=== PATIENT | female | born 1985 | race Caucasian/White ===

== ENCOUNTER 2018-04-03 22:43 | Emergency (ER) | payer MEDICAID ==
[~2018-04-03] VITALS: Ht 177.8 cm; Wt 71.7 kg
[2018-04-03] MEDS ORDERED: NKM (22:56)
[2018-04-03] MEDS ORDERED: Aspirin Baby 81mg ORAL ONE (23:30)
[2018-04-03] MEDS ORDERED: Ketorolac 30mg Inj IV ONE (23:30)
--- NOTE | 2018-04-04 00:03 | Emergency Room Report ---
History of Present Illness General Chief Complaint: Chest Pain Source: Patient Present Illness HPI This is a 32-year-old female who said that she had a history of heart attack in the past. She has been having chest pain and syncope with headache for the last several months. She said she was at [place] admitted for week a couple weeks ago. She had a stress test and echocardiogram was normal. They did an angiogram and said that she had normal arteries. She said that someone told her that she had a heart attack. She said of last March she was in was sealed also had an angiogram that was negative. Patient presents with chief complaint of chest pain at was onset about 2 hours ago. She said that she felt lightheaded and passed out. No trauma. Pain is diffuse in nature. Sharp. No nausea no vomiting. No fever chills. Denies anxiety. Allergies: Coded Allergies: No Known Allergies (Unverified , 04/03/18) Patient History Past Medical History: see triage record, old chart reviewed Past Surgical History: other Pertinent Family History: none Social History: Denies: smoking Last Menstrual Period: unk Now: No Immunizations: other Reviewed Nursing Documentation: PMH: Agreed; PSxH: Agreed Nursing Documentation-PMH Past Medical History: No Stated History Review of Systems Eye: Denies: eye pain, blurred vision ENT: Denies: ear pain, nose congestion, throat swelling Respiratory: Denies: cough, shortness of breath Cardiovascular: Reports: chest pain; Denies: palpitations Gastrointestinal: Denies: abdominal pain, diarrhea, nausea, vomiting Musculoskeletal: Denies: back pain, joint pain Skin: Denies: rash Neurological: Denies: headache, numbness Endocrine: Denies: increased thirst, increased urine Hematologic/Lymphatic: Denies: easy bruising All Other Systems: negative except mentioned in HPI Physical Exam Vital Signs Date Time Temp Pulse Resp B/P (MAP) Pulse Ox O2 Delivery O2 Flow Rate FiO2 04/03/18 22:51 98.2 78 16 112/77 99 Room Air 98.2 vitals normal Sp02 EP Interpretation: reviewed, normal General Appearance: well appearing, no apparent distress, alert Head: normocephalic, atraumatic Eyes: bilateral eye PERRL, bilateral eye EOMI ENT: hearing grossly normal, normal pharynx Neck: full range of motion, supple, no meningismus Respiratory: chest non-tender, lungs clear, normal breath sounds Cardiovascular #1: regular rate, rhythm, no murmur Gastrointestinal: normal bowel sounds, non tender, no mass, no organomegaly, no bruit, non-distended Musculoskeletal: back normal, gait/station normal, normal range of motion Neurologic: alert, oriented x3 Psychiatric: anxious Skin: warm/dry Medical Decision Making Diagnostic Impression: Primary Impression: Chest pain Qualified Codes: R07.9 - Chest pain, unspecified ER Course Patient presents with atypical chest pain and syncope and lightheadedness. Most likely anxiety hyperventilation. I see no evidence of ACS, PE, dissection to name a few. Negative angiogram within the last year. We'll discharge home with reassurance and follow-up with cardiology for Holter monitor. Lab Results Impression labs normal EKG Diagnostic Results EKG Time: 00:02 Rate: normal Rhythm: NSR ST Segments: no acute changes ASA given to the pt in ED: Yes Rhythm Strip Diag. Results Rhythm Strip Time: 00:03 EP Interpretation: yes Rate: 65 Rhythm: NSR, no PVC's, no ectopy Chest X-Ray Diagnostic Results Chest X-Ray Diagnostic Results : Chest X-Ray Ordered: Yes # of Views/Limited/Complete: 1 View Indication: Chest Pain EP Interpretation: Yes Interpretation: no consolidation, no effusion, no pneumothorax, no acute cardiopulmonary disease Impression: No acute disease Electronically Signed by: Lamont Sosa MD Last Vital Signs Date Time Temp Pulse Resp B/P (MAP) Pulse Ox O2 Delivery O2 Flow Rate FiO2 04/03/18 23:12 78 16 Room Air 04/03/18 22:51 98.2 112/77 99 98.2 Status: improved Disposition: HOME, SELF-CARE Condition: Stable Scripts Lorazepam* (ATIVAN*) 0.5 Mg Tablet 0.5 MG ORAL THREE TIMES A DAY, #21 TAB Prov: LAMONT SOSA M.D. 04/04/18 Referrals: [facility],REFERRING (PCP) Patient Instructions: Nonspecific Chest Pain Additional Instructions: Follow-up with your doctor within 7 days. You may benefit from referral to see a sealer operator for Holter monitor. Return of worse. LAMONT SOSA M.D. April 04, 2018 00:03
[2018-04-04 00:28] LABS: ANION GAP 7 mmol/L (5-15); BLOOD UREA NITROGEN 7 mg/dL (7-18); CALCIUM 8.7 MG/DL (8.5-10.1); CARBON DIOXIDE 28 MMOL/L (21-32); CHLORIDE 105 MMOL/L (98-107); CREATININE 0.7 MG/DL (0.55-1.30); POTASSIUM 3.2 MMOL/L (3.5-5.1); SODIUM 140 MMOL/L (136-145)
[2018-04-04 00:39] LABS: HEMATOCRIT 41.3 % (37.0-47.0); HEMOGLOBIN 14.6 G/DL (12.0-16.0); MEAN CORPUSCULAR VOLUME 94 FL (80-99); WHITE BLOOD COUNT 7.5 K/UL (4.8-10.8)
[2018-04-04 00:40] LABS: BASOPHILS % (AUTO) 0.6 % (0.0-2.0); LYMPHOCYTES % (AUTO) 30.6 % (20.0-45.0); MONOCYTES % (AUTO) 5.9 % (1.0-10.0); NEUTROPHILS % (AUTO) 60.9 % (45.0-75.0); PLATELET COUNT 239 K/UL (150-450); RED CELL DISTRIBUTION WIDTH 11.1 % (11.6-14.8)
[2018-04-04 00:43] LABS: ALANINE AMINOTRANSFERASE 20 U/L (12-78); ALBUMIN 3.9 G/DL (3.4-5.0); ALBUMIN/GLOBULIN RATIO 1.1 (1.0-2.7); ALKALINE PHOSPHATASE 47 U/L (46-116); ASPARTATE AMINO TRANSFERASE 12 U/L (15-37); BILIRUBIN,TOTAL 0.7 MG/DL (0.2-1.0); CKMB 0.6 NG/ML (0.0-3.6); CREATINE KINASE 175 U/L (26-308)
[2018-04-04 00:44] LABS: APPEARANCE,URINE CLEAR; COLOR,URINE PALE YELLOW
[2018-04-04 00:45] LABS: BILIRUBIN, URINE NEGATIVE (NEGATIVE); GLUCOSE, URINE (UA) NEGATIVE (NEGATIVE); KETONES,URINE NEGATIVE (NEGATIVE); LEUKOCYTE ESTERASE ,URINE NEGATIVE (NEGATIVE); NITRITE,URINE NEGATIVE (NEGATIVE); PH,URINE 5 (4.5-8.0); PROTEIN,URINE 1+ (NEGATIVE); UROBILINOGEN,URINE NORMAL MG/DL (0.0-1.0)
[2018-04-04 00:54] VITALS: BP 112/77
[2018-04-04] MEDS ORDERED: ATIVAN0.5 MG ORAL (00:58)
--- NOTE | 2018-04-04 17:05 | Diagnostic Imaging Report ---
Indication: Chest pain Technique: XRAY Chest 1v Comparison: None Findings: Heart size within the upper limits for normal. Mediastinal contours are sharp.. There is no focal consolidation, pneumothorax or pleural effusion. Osseous structures demonstrate no acute abnormality. Impression: No radiographic evidence of acute cardiopulmonary disease.
--- NOTE | 2018-04-06 12:01 | Cardiology Report ---
APPROVED REPORT EKG Measurement Heart [id number] Sinus rhythm with sinus arrhythmia with 1st degree AV block Incomplete right bundle branch block Borderline ECG
== END 2018-04-04 00:54 | disposition home or self-care (01) ==
LOC: EMR 23:08
DX: R07.89 Other chest pain (principal)
CPT/HCPCS: 36415; 71045; 80053; 80307; 81003; 82550; 82553; 84484; 85025; 85379; 93005; 96374; 96375; 99283; J1885

== ENCOUNTER 2019-03-22 21:00 | Emergency (ER) | payer MEDICAID ==
[~2019-03-22] VITALS: Ht 177.8 cm; Wt 74.8 kg
[~2019-03-22 21:00] MED LIST: ATIVAN0.5 MG ORAL; NKM
--- NOTE | 2019-03-22 21:32 | NUR ---
ER Nurse Note: Pt came from home c/o right knee pain post fall. Pt stated her knee locked up and fell in the kitchen. Right knee swollen, no skin breakdown, cap refill less than 3 secs and pedial pulses 2+. Pt unable to ambulate. Pt a&ox4, VSS. Pt states 8/10 pain; elevated and ice pack applied. x-ray taken, will continue to montior.
[2019-03-22] MEDS ORDERED: HYDROmorphone 1mg/ml Carpuject IM ONE (21:45)
[2019-03-22] MEDS ORDERED: HYDROCODON-ACE1 EA15 ORAL (22:28)
[2019-03-22] MEDS ORDERED: IBUPROFEN600 MG ORAL (22:28)
--- NOTE | 2019-03-22 22:29 | Emergency Room Report ---
History of Present Illness General Chief Complaint: Lower Extremity Injury Source: Patient Present Illness HPI Is a 33-year-old female with a history of right knee arthritis secondary to degenerative problem. She has previous surgery. She presents with right knee pain. She has chronic pain in that knee. She said it locks up frequently. 2 days ago and locked up and she fell directly into the knee. Since then is swollen. Pain is 9 out of 10. Worse with walking. Worse with weightbearing. No fever chills but no other trauma. No redness. No relief with over-the- counter medication. Allergies: Coded Allergies: No Known Allergies (Unverified , 04/03/18) Patient History Past Medical History: see triage record, old chart reviewed Past Surgical History: other Pertinent Family History: none Social History: Denies: smoking Last Menstrual Period: 03/08/2019 Now: No Immunizations: other Reviewed Nursing Documentation: PMH: Agreed; PSxH: Agreed Nursing Documentation-PMH Past Medical History: No Stated History Review of Systems Eye: Denies: eye pain, blurred vision ENT: Denies: ear pain, nose congestion, throat swelling Respiratory: Denies: cough, shortness of breath Cardiovascular: Denies: chest pain, palpitations Gastrointestinal: Denies: abdominal pain, diarrhea, nausea, vomiting Musculoskeletal: Reports: joint pain; Denies: back pain Skin: Denies: rash Neurological: Denies: headache, numbness Endocrine: Denies: increased thirst, increased urine Hematologic/Lymphatic: Denies: easy bruising All Other Systems: negative except mentioned in HPI Physical Exam Vital Signs Date Time Temp Pulse Resp B/P (MAP) Pulse Ox O2 Delivery O2 Flow Rate FiO2 03/22/19 21:18 98.1 86 16 107/67 96 Room Air vitals normal Sp02 EP Interpretation: reviewed, normal General Appearance: well appearing, no apparent distress, alert Head: normocephalic, atraumatic Eyes: bilateral eye PERRL, bilateral eye EOMI ENT: hearing grossly normal, normal pharynx Neck: full range of motion, supple, no meningismus Respiratory: chest non-tender, lungs clear, normal breath sounds Cardiovascular #1: regular rate, rhythm, no murmur Gastrointestinal: normal bowel sounds, non tender, no mass, no organomegaly, no bruit, non-distended Musculoskeletal: back normal, other - Right knee: There is moderate amount of effusion. Knee is stable. Full range of motion. Most of tenderness is to the lateral collateral ligament. No redness. No warmth. Psychiatric: mood/affect normal Skin: warm/dry Procedures Additional Procedure Procedure Narrative Procedure: Right knee arthrocentesis Indication: Right knee effusion Description: Under sterile condition, I attempted arthrocentesis using lateral approach. It was unsuccessful. I keep hitting a lot of scar tissue. Patient said this happened to her several times already. She tolerated procedure without a problem. no complications. Medical Decision Making Diagnostic Impression: Primary Impression: Effusion of right knee joint Additional Impression: Arthritis of right knee ER Course Patient presents with right knee effusion and pain. This probably secondary to her degenerative and arthritic changes. No evidence of septic joint based on physical exam. She has no fever, redness, and has full range of motion even though painful. We'll discharge home. Other X-Ray Diagnostic Results Other X-Ray Diagnostic Results : X-Ray ordered: Right knee x-rays # of Views/Limited Vs Complete: 4 View Indication: Pain EP Interpretation: Yes Interpretation: no dislocation, no soft tissue swelling, other - effusion, degenerative changes Impression: Other - Degenerative changes. effusion Electronically Signed by: Lamont Sosa MD Last Vital Signs Date Time Temp Pulse Resp B/P (MAP) Pulse Ox O2 Delivery O2 Flow Rate FiO2 03/22/19 21:18 98.1 86 16 107/67 96 Room Air Status: improved Disposition: HOME, SELF-CARE Condition: Stable Scripts Ibuprofen* (MOTRIN*) 600 Mg Tablet 600 MG ORAL THREE TIMES A DAY, #30 TAB 0 Refills Prov: Lamont Sosa MD 03/22/19 Hydrocodone/Acetaminophen 5-325* (HYDROCODONE/ACETAMINOPHEN 5-325*) 1 Each Tablet 1 TAB ORAL Q6H PRN for For Pain, #20 TAB 0 Refills Prov: Lamont Sosa MD 03/22/19 Additional Instructions: Follow-up with your doctor in 7 days. Elevate leg. Return if symptom worsen. Lamont Sosa MD Mar 22, 2019 22:29
[2019-03-22 22:50] VITALS: BP 100/64
--- NOTE | 2019-03-22 22:50 | NUR ---
ER Nurse Note: Pt seen, treated, medically cleared for discharge by ERMD. Discharge instructions and prescriptions given with repeat verbalizaion by pt. Instructed pt to follow up with primary care physcian within one week. Pt a&ox4, VSS, no signs of distress, Crutch teaching provided by light rail signal technicianCLIVE nye was taught with repeat verbalization by pt. All belongings taken, left with crutches, left via own transporation.
--- NOTE | 2019-03-23 10:01 | Diagnostic Imaging Report ---
Indication: Pain, swelling, status post fall Technique: 4 views of the knee Comparison: None Findings: There is a small suprapatellar effusion. No acute fractures. No dislocations. There is mild medial lateral compartmental degenerative joint space narrowing. There is extensive irregularity of the articular surfaces and subchondral cyst formation involving the medial and lateral femoral condyles, and to a lesser extent of the medial and lateral tibial plateaus and patellar articular surface. Impression: No acute bony trauma Small joint effusion, raises concern for internal derangement. Consider MRI for further evaluation Mild degenerative joint space narrowing. Unusually extensive subarticular changes, out of proportion to the chondral abnormality. Most likely on the basis of degenerative change but underlying synovial pathology also possible.
== END 2019-03-22 22:50 | disposition home or self-care (01) ==
LOC: EMR 21:14
DX: M25.461 Effusion, right knee (principal); M17.11 Unilateral primary osteoarthritis, right knee; G89.29 Other chronic pain
CPT/HCPCS: 20610; 73564; 96372; 99284; J1170

== ENCOUNTER 2020-09-04 03:30 | Emergency (ER) | payer MEDICAID ==
[~2020-09-04] VITALS: Ht 177.8 cm; Wt 72.6 kg
[~2020-09-04 03:30] MED LIST changes: +HYDROCODON-ACE1 EA15 ORAL; +IBUPROFEN600 MG ORAL; +NAPROXEN500 M1 ORAL
[2020-09-04] MEDS ORDERED: LORazepam Inj 2mg/ml 1ml IV ONE (04:00)
[2020-09-04 04:32] LABS: APPEARANCE,URINE CLEAR; BASOPHILS % (AUTO) 0.9 % (0.0-2.0); BILIRUBIN, URINE NEGATIVE (NEGATIVE); COLOR,URINE PALE YELLOW; EOSINOPHILS % (AUTO) 4.1 % (0.0-3.0); GLUCOSE, URINE (UA) NEGATIVE (NEGATIVE); HEMATOCRIT 43.4 % (37.0-47.0); HEMOGLOBIN 14.9 G/DL (12.0-16.0); KETONES,URINE NEGATIVE (NEGATIVE); LEUKOCYTE ESTERASE ,URINE NEGATIVE (NEGATIVE); LYMPHOCYTES % (AUTO) 38.8 % (20.0-45.0); MEAN CORPUSCULAR VOLUME 93 FL (80-99); MONOCYTES % (AUTO) 6.4 % (1.0-10.0); NEUTROPHILS % (AUTO) 49.8 % (45.0-75.0); NITRITE,URINE NEGATIVE (NEGATIVE); PH,URINE 5 (4.5-8.0); PLATELET COUNT 249 K/UL (150-450); PROTEIN,URINE NEGATIVE (NEGATIVE); RED BLOOD COUNT 4.68 M/UL (4.20-5.40); RED CELL DISTRIBUTION WIDTH 11.2 % (11.6-14.8); UROBILINOGEN,URINE NORMAL MG/DL (0.0-1.0); WHITE BLOOD COUNT 6.9 K/UL (4.8-10.8)
[2020-09-04 04:45] LABS: ANION GAP 8 mmol/L (5-15); BLOOD UREA NITROGEN 11 mg/dL (7-18); CALCIUM 8.5 MG/DL (8.5-10.1); CARBON DIOXIDE 25 MMOL/L (21-32); CHLORIDE 104 MMOL/L (98-107); CREATININE 0.6 MG/DL (0.55-1.30); POTASSIUM 3.9 MMOL/L (3.5-5.1); SODIUM 137 MMOL/L (136-145)
[2020-09-04 04:49] LABS: ALANINE AMINOTRANSFERASE 14 U/L (12-78); ALBUMIN 3.9 G/DL (3.4-5.0); ALBUMIN/GLOBULIN RATIO 1.1 (1.0-2.7); ALKALINE PHOSPHATASE 69 U/L (46-116); ASPARTATE AMINO TRANSFERASE 13 U/L (15-37); BILIRUBIN,TOTAL 0.3 MG/DL (0.2-1.0)
[2020-09-04 05:00] VITALS: BP 111/63
--- NOTE | 2020-09-04 05:17 | Emergency Room Report ---
History of Present Illness General Chief Complaint: Chest Pain Source: Patient Present Illness HPI 34-year-old female presents to ED for evaluation. States she has been having chest pain. Was seen here 2 days ago for similar chest pain. States symptoms did not resolve so she came back. Notes tingling sensations in her arms and face. Notes tightness in her chest. Is crying. States she does have anxiety. Does not know was triggering her anxiety at this time. Denies alcohol or drug use. No other aggravating relieving factors. 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 COVID-19 Screening: Negative COVID-19 COVID-19 Testing Source: 3wks ago Patient History Past Medical History: psych hx Past Surgical History: none Pertinent Family History: none Social History: Denies: smoking, alcohol use, drug use Now: No Immunizations: UTD Reviewed Nursing Documentation: PMH: Agreed; PSxH: Agreed Nursing Documentation-PMH Past Medical History: No Stated History Hx Cardiac Problems: Yes - CARDIAC CATH 2017 Review of Systems All Other Systems: negative except mentioned in HPI Physical Exam Vital Signs Date Time Temp Pulse Resp B/P (MAP) Pulse Ox O2 Delivery O2 Flow Rate FiO2 09/04/20 03:33 98.2 70 20 108/71 (83) 98 Room Air Sp02 EP Interpretation: reviewed, normal General Appearance: alert, GCS 15, non-toxic, mild distress Head: normocephalic, atraumatic Eyes: bilateral eye normal inspection, bilateral eye PERRL ENT: hearing grossly normal, normal pharynx, no angioedema, normal voice Neck: full range of motion, supple/symm/no masses Respiratory: chest non-tender, lungs clear, normal breath sounds, speaking full sentences Cardiovascular #1: regular rate, rhythm, no edema Cardiovascular #2: 2+ carotid (R), 2+ carotid (L), 2+ radial (R), 2+ radial (L), 2+ dorsalis pedis (R), 2+ dorsalis pedis (L) Gastrointestinal: normal bowel sounds, non tender, soft, non-distended, no guarding, no rebound Rectal: deferred Genitourinary: normal inspection, no CVA tenderness Musculoskeletal: back normal, normal range of motion, gait/station normal, non- tender Neurologic: alert, motor strength/tone normal, oriented x3, sensory intact, responsive, speech normal Psychiatric: judgement/insight normal, memory normal, no suicidal/homicidal ideation, no delusions, anxious Reflexes: 3+ bicep (R), 3+ bicep (L), 3+ tricep (R), 3+ tricep (L), 3+ knee (R), 3+ knee (L) Skin: no rash Lymphatic: no adenopathy Medical Decision Making Diagnostic Impression: Primary Impression: Anxiety Additional Impression: Atypical chest pain ER Course Hospital Course 34-year-old F presents ED complaining of tingling to hands and face. c/o chest pain Differential diagnoses include: LA/unstable angina, CVA/TIA, dehydration, anxiety Clinical course Patient placed on stretcher. on monitoring manager. After initial history and physical I ordered labs, EKG, IVFs and ativan labs reviewed- no leukocytosis, hemoglobin/hematocrit stable, troponins negative, electrolytes okay EKG - NSR no acute ischemic changes interpreed by me I reviewed EMR. Patient was seen here 2 days ago for similar presentation. Had full cardiac work-up which was also unremarkable. ED physician suspected anxiety at that time as well. Patient feels better after Ativan. States she has multiple stressors in her life. No cardiac risk factors. Safe for discharge close outpatient follow-up. I will provide short term prescription of Ativan. I will provide referrals I. I feel this is a highly complex case requiring extensive working including EKG/Rhythm strip, Xray/CT/US, Blood/urine lab work, repeat exams while in ED, and administration of strong opiates/narcotics for pain control, admission to hospital or close patient follow up. Diagnosis - anxiety, atypical chest pain Stable and discharged to home. Followup with PMD. Return to ED if symptoms recur or worse Laboratory Tests Test 09/04/20 04:22 White Blood Count 6.9 K/UL (4.8-10.8) Red Blood Count 4.68 M/UL (4.20-5.40) Hemoglobin 14.9 G/DL (12.0-16.0) Hematocrit 43.4 % (37.0-47.0) Mean Corpuscular Volume 93 FL (80-99) Mean Corpuscular Hemoglobin 31.9 PG (27.0-31.0) H Mean Corpuscular Hemoglobin Concent 34.4 G/DL (32.0-36.0) Red Cell Distribution Width 11.2 % (11.6-14.8) L Platelet Count 249 K/UL (150-450) Mean Platelet Volume 7.3 FL (6.5-10.1) Neutrophils (%) (Auto) 49.8 % (45.0-75.0) Lymphocytes (%) (Auto) 38.8 % (20.0-45.0) Monocytes (%) (Auto) 6.4 % (1.0-10.0) Eosinophils (%) (Auto) 4.1 % (0.0-3.0) H Basophils (%) (Auto) 0.9 % (0.0-2.0) Urine Color Pale yellow Urine Appearance Clear Urine pH 5 (4.5-8.0) Urine Specific Tim[place]in 1.015 (1.005-1.035) Urine Protein Negative (NEGATIVE) Urine Glucose (UA) Negative (NEGATIVE) Urine Ketones Negative (NEGATIVE) Urine Blood Negative (NEGATIVE) Urine Nitrite Negative (NEGATIVE) Urine Bilirubin Negative (NEGATIVE) Urine Urobilinogen Normal MG/DL (0.0-1.0) Urine Leukocyte Esterase Negative (NEGATIVE) Urine HCG, Qualitative Negative (NEGATIVE) Sodium Level 137 MMOL/L (136-145) Potassium Level 3.9 MMOL/L (3.5-5.1) Chloride Level 104 MMOL/L (98-107) Carbon Dioxide Level 25 MMOL/L (21-32) Anion Gap 8 mmol/L (5-15) Blood Urea Nitrogen 11 mg/dL (7-18) Creatinine 0.6 MG/DL (0.55-1.30) Estimat Glomerular Filtration Rate > 60 mL/min (>60) Glucose Level 93 MG/DL (74-106) Calcium Level 8.5 MG/DL (8.5-10.1) Total Bilirubin 0.3 MG/DL (0.2-1.0) Aspartate Amino Transf (AST/SGOT) 13 U/L (15-37) L Alanine Aminotransferase (ALT/SGPT) 14 U/L (12-78) Alkaline Phosphatase 69 U/L (46-116) Troponin I 0.004 ng/mL (0.000-0.056) Total Protein 7.3 G/DL (6.4-8.2) Albumin 3.9 G/DL (3.4-5.0) Globulin 3.4 g/dL Albumin/Globulin Ratio 1.1 (1.0-2.7) Salicylates Level 1.8 ug/mL (2.8-20) L Urine Opiates Screen Negative (NEGATIVE) Acetaminophen Level < 2 MCG/ML (10-30) L Urine Barbiturates Screen Negative (NEGATIVE) Phencyclidine (PCP) Screen Negative (NEGATIVE) Urine Amphetamines Screen Negative (NEGATIVE) Urine Benzodiazepines Screen Negative (NEGATIVE) Urine Cocaine Screen Negative (NEGATIVE) Urine Marijuana (THC) Screen Negative (NEGATIVE) Serum Alcohol < 3 mg/dL EKG Diagnostic Results Rate: normal Rhythm: NSR ST Segments: no acute changes ASA given to the pt in ED: No Rhythm Strip Diag. Results EP Interpretation: yes Rhythm: NSR, no PVC's, no ectopy Last Vital Signs Date Time Temp Pulse Resp B/P (MAP) Pulse Ox O2 Delivery O2 Flow Rate FiO2 09/04/20 04:36 70 20 108/71 98 09/04/20 03:33 98.2 Room Air Status: improved Disposition: HOME, SELF-CARE Condition: Stable Scripts Lorazepam* (ATIVAN*) 1 Mg Tablet 1 MG ORAL THREE TIMES A DAY, #10 TAB Prov: Adam Huber MD 09/04/20 Referrals: NON PHYSICIAN (PCP) Adam Huber MD Sep 04, 2020 05:17
[2020-09-04] MEDS ORDERED: ATIVAN1 MG ORAL (05:34)
[2020-09-04 05:50] VITALS: BP 108/71
--- NOTE | 2020-09-06 17:06 | Cardiology Report ---
APPROVED REPORT EKG Measurement Heart [id number] <Conclusion> Normal sinus rhythm Cannot rule out Anterior infarct, age undetermined Abnormal ECG
== END 2020-09-04 05:50 | disposition home or self-care (01) ==
LOC: EMR 03:47
DX: F41.9 Anxiety disorder, unspecified (principal); R07.89 Other chest pain
CPT/HCPCS: 36415; 80053; 80307; 81003; 81025; 84484; 85025; 93005; 96374; G0480; G0481; J7040; Z7502; 99284

== ENCOUNTER 2020-09-11 01:09 | Emergency (ER) | payer MEDICAID ==
[~2020-09-11] VITALS: Ht 177.8 cm; Wt 77.1 kg
[~2020-09-11 01:09] MED LIST changes: +ATIVAN1 MG ORAL
[2020-09-11 01:20] VITALS: BP 112/74
--- NOTE | 2020-09-11 01:20 | NUR ---
ED Nurse Note: pt OSWALD PARRISH from home, per EMS report pt stated "feeling down." Pt admits to taking ativan and gabapentin w/o relief. Pt denies suicide/homocide ideation. Pt placed in RME, room checked for safety and is free of harmful objects.
--- NOTE | 2020-09-11 01:30 | Emergency Room Report ---
History of Present Illness General Chief Complaint: General Complaint Present Illness HPI 34-year-old female with a history of anxiety and "an old heart attack" but negative subsequent cardiac catheterization and negative echocardiogram and negative stress test in 2018, here with palpitations and anxiety. Patient is tearful in the emergency department. She has been having panic attacks recently and followed up for the first time with a psychiatrist today. The psychiatrist prescribed her multiple medications including Ativan, gabapentin, Zoloft, Lamictal, trazodone for treatment of depression and PTSD. Patient took the Ativan and gabapentin but did not take any other medications. She took these medications at about 6 PM. She says that several hours later she felt "woozy" and had more palpitations. Has never had a symptoms before. Denies homicidal or suicidal ideation or hallucinations. This time she says that she feels much improved and is wishing to leave. 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 Nursing Documentation-PMH Hx Cardiac Problems: Yes - CARDIAC CATH 2017 Review of Systems All Other Systems: negative except mentioned in HPI Physical Exam Vital Signs Date Time Temp Pulse Resp B/P (MAP) Pulse Ox O2 Delivery O2 Flow Rate FiO2 09/11/20 01:16 98.2 100 18 112/74 (87) 98 Room Air Sp02 EP Interpretation: reviewed, normal General Appearance: no apparent distress, alert, non-toxic Head: normocephalic, atraumatic Eyes: bilateral eye normal inspection, bilateral eye PERRL ENT: hearing grossly normal, normal pharynx, no angioedema, normal voice Neck: full range of motion, supple/symm/no masses Respiratory: chest non-tender, lungs clear, normal breath sounds, speaking full sentences Cardiovascular #1: regular rate, rhythm, no edema Cardiovascular #2: 2+ carotid (R), 2+ carotid (L), 2+ radial (R), 2+ radial (L), 2+ dorsalis pedis (R), 2+ dorsalis pedis (L) Gastrointestinal: normal bowel sounds, non tender, soft, non-distended, no guarding, no rebound Rectal: deferred Genitourinary: normal inspection, no CVA tenderness Musculoskeletal: back normal, normal range of motion, gait/station normal, non- tender Neurologic: alert, motor strength/tone normal, oriented x3, sensory intact, responsive, speech normal Psychiatric: judgement/insight normal, memory normal, mood/affect normal, no suicidal/homicidal ideation, other - Anxious and tearful, but is redirectable and able to answer questions appropriately and have lucid conversation Lymphatic: no adenopathy Medical Decision Making Diagnostic Impression: Primary Impression: Anxiety ER Course 34-year-old female here with palpitations and anxiety. The patient was hemodynamically stable in the emergency department. She was tearful and complaining of anxiety but said "I feel much better than before. I think I am okay to go home." EKG: NSR, no ischemia, intervals WNL. No ectopy. Rate 108 bpm Rhythm strip: patient monitored for arrhythmias - no malignant dysrhythmias, runs of PVCs, nor pauses noted Patient had normal vital signs in the emergency department. PERC negative, was not complaining of any chest pain or shortness of breath. Low likelihood of any cardiac disorders. Patient adamantly denied any homicidal or suicidal ideation. She will follow-up with her psychiatrist and her primary care physician. Discharged in stable condition. ddx: ACS, dissection, PE, PTX, pericarditis, myocarditis, musculoskeletal, GERD/GI conditions, anxiety Last Vital Signs Date Time Temp Pulse Resp B/P (MAP) Pulse Ox O2 Delivery O2 Flow Rate FiO2 09/11/20 01:16 98.2 100 18 112/74 (87) 98 Room Air Disposition: HOME, SELF-CARE Condition: Stable Referrals: [facility] Patient Instructions: Panic Attacks Anthony Lemos M.D. Sep 11, 2020 01:30
--- NOTE | 2020-09-11 01:49 | NUR ---
ED Nurse Note: urine sent to lab
[2020-09-11 02:15] VITALS: BP 113/81
--- NOTE | 2020-09-11 02:15 | NUR ---
ER DISCHARGE NOTE: Patient is cleared to be discharged per ERMD, pt is aox4, on room air, with stable vital signs. Pt reports feeling significantly calmer. pt was given dc paperwork with instructions to f/u with PMD and psychiatrist, pt was able to verbalize understanding, pt id band removed. pt is able to ambulate with steady gait. pt took all belongings.
== END 2020-09-11 02:15 | disposition home or self-care (01) ==
LOC: EDBD 01:09 → EDUNIT# 01:09 → EMR 01:24
DX: F41.9 Anxiety disorder, unspecified (principal)
CPT/HCPCS: 81025; 93005; Z7502; 99283